=== PATIENT | female | born 1990 | race African-American/Black ===

== ENCOUNTER 2018-10-31 15:35 | Inpatient (IN) | payer OTHER | END 2018-11-09 08:38 | disposition home or self-care (01) | LOC: YASAS 15:35 → Y3E 21:08 | PROC: HZ42ZZZ Group Counseling for Substance Abuse Treatment, Cognitive-Behavioral (ICD-10-PCS; principal; 2018-10-31) | DX: F10.20 Alcohol dependence, uncomplicated (principal); F12.20 Cannabis dependence, uncomplicated; F19.282 Other psychoactive substance dependence with psychoactive substance-induced sleep disorder; F43.10 Post-traumatic stress disorder, unspecified; F41.9 Anxiety disorder, unspecified; M25.522 Pain in left elbow; M25.561 Pain in right knee; Z59.0 Homelessness ==